=== PATIENT | male | born 1995 | race African-American/Black ===

== ENCOUNTER → 2024-05-08 | Outpatient (CLI) | payer OTHER | LOC: M PLAIMG 07:53 | PROVIDERS: ATTEND Otolaryngology | DX: J32.8 Other chronic sinusitis (principal); J34.8200 Internal nasal valve collapse, unspecified ==

== ENCOUNTER → 2024-08-17 | Outpatient (CLI) | payer OTHER | LOC: M RAD 07:32 | PROVIDERS: ATTEND Emergency Medicine | DX: M25.571 Pain in right ankle and joints of right foot (principal); Q66.89 Other specified congenital deformities of feet ==

== ENCOUNTER 2024-11-14 15:15 | Emergency (ER) | payer OTHER ==
[~2024-11-14] VITALS: Ht 182.9 cm; Wt 100.3 kg
[2024-11-14 15:18] VITALS: TEMP 98.4; O2SAT 100
[2024-11-14] MEDS ORDERED: ELET40TA (15:25)
[2024-11-14] MEDS: NS (Normal Saline) 0.9% 1,000 ML IV ONE (16:33)
[2024-11-14] MEDS: diphenhydrAMINE 50 MG/ML VIAL IV ONE (16:34)
[2024-11-14] MEDS: KETOROLAC 30 MG/ML 1 ML VIAL IV ONE (16:34)
[2024-11-14 16:47] LABS: BASO # 0.0 10^3/uL (0.0-0.2); BASO % 0.4 % (0.0-1.0); EOS # 0.1 10^3/uL (0.0-0.5); EOS % 1.0 % (0.0-3.0); LYMPH # 3.3 10^3/uL (1.5-5.0); LYMPH % 46.6 % (24.0-44.0); MONO # 0.8 10^3/uL (0.0-0.8); MONO % 11.7 % (2.0-8.0); NEUTROPHILS # 2.8 10^3/uL (1.5-8.5); NEUTROPHILS % 40.2 % (36.0-66.0); PLATELET COUNT, AUTOMATED 249 10^3/uL (150-450)
[2024-11-14 17:04] LABS: ALT/SGPT 39 U/L (7.0-40); AST/SGOT 31 U/L (<34); CALCIUM LEVEL 9.5 MG/DL (8.5-10.1); CARBON DIOXIDE LEVEL 26 MMOL/L (20-31); CHLORIDE LEVEL 105 MMOL/L (98-107); CREATININE FOR GFR 1.12 MG/DL (0.70-1.30); GLOMERULAR FILTRATION RATE > 90.0 (>60); POTASSIUM SERUM 4.3 MMOL/L (3.5-5.1); SODIUM LEVEL 145 MMOL/L (136-145)
[2024-11-14] MEDS: ACETAMINOPHEN 500 MG TAB PO ONE (17:33)
[2024-11-14] MEDS: MAG SULF 1GM/100ML (MAG RUN) 1 GM in IV 1 EA IV ONE (17:34)
[2024-11-14] MEDS: dexAMETHasone 4 MG/ML 1 ML VIAL IV ONE (17:34)
[2024-11-14 17:54] LABS: ERYTHROCYTE SEDIMENTATION RATE 3 mm/hr (0-15)
[2024-11-14 18:33] VITALS: BP 130/90
== END 2024-11-14 18:53 | disposition home or self-care (01) ==
LOC: M ED 15:15
DX: G43.919 Migraine, unspecified, intractable, without status migrainosus (principal); Z88.8 Allergy status to other drugs, medicaments and biological substances
CPT/HCPCS: 70450; 80053; 85025; 85652; 96365; 96375; 99284; J1100; J1200; J1885; J2765; J3475

== ENCOUNTER 2024-12-01 11:13 | Emergency (ER) | payer OTHER ==
[~2024-12-01] VITALS: Ht 182.9 cm; Wt 98.6 kg
[~2024-12-01 11:13] MED LIST: ELET40TA
[2024-12-01] MEDS ORDERED: SUMA100T2 PO (11:36)
[2024-12-01] MEDS ORDERED: REFR0.1D OU (11:36)
[2024-12-01] MEDS ORDERED: SILD50TA2 PO (11:36)
[2024-12-01] MEDS ORDERED: AMIT25TA19 PO (11:36)
[2024-12-01] MEDS ORDERED: DULO1CAP6 PO (11:36)
[2024-12-01] MEDS ORDERED: OLOP5DRO17 OU (11:36)
[2024-12-01] MEDS ORDERED: RAME8TAB2 PO (11:36)
[2024-12-01] MEDS ORDERED: RIZA10TA58 PO (11:36)
[2024-12-01] MEDS ORDERED: ERGO500029 PO (11:36)
[2024-12-01 11:40] LABS: BASO # 0.1 10^3/uL (0.0-0.2); BASO % 1.0 % (0.0-1.0); EOS # 0.1 10^3/uL (0.0-0.5); EOS % 1.8 % (0.0-3.0); LYMPH # 2.5 10^3/uL (1.5-5.0); LYMPH % 50.1 % (24.0-44.0); MONO # 0.6 10^3/uL (0.0-0.8); MONO % 11.5 % (2.0-8.0); NEUTROPHILS # 1.8 10^3/uL (1.5-8.5); NEUTROPHILS % 35.4 % (36.0-66.0); PLATELET COUNT, AUTOMATED 274 10^3/uL (150-450)
[2024-12-01 12:16] LABS: CALCIUM LEVEL 9.0 MG/DL (8.5-10.1); CARBON DIOXIDE LEVEL 25 MMOL/L (20-31); CHLORIDE LEVEL 107 MMOL/L (98-107); CK-MB VALUE MASS 1.3 NG/ML (<3.6); CREATININE FOR GFR 1.13 MG/DL (0.70-1.30); GLOMERULAR FILTRATION RATE > 90.0 (>60); POTASSIUM SERUM 4.8 MMOL/L (3.5-5.1); SODIUM LEVEL 141 MMOL/L (136-145)
[2024-12-01 12:17] LABS: CPK CREATINE PHOSPHOKINASE 121 U/L (46-171); MB/CK RELATIVE INDEX 1.07 (< OR =4)
[2024-12-01] MEDS: NS (Normal Saline) 0.9% 1,000 ML IV ONE ×2 (12:29→14:02)
[2024-12-01] MEDS: MAG SULF 1GM/100ML (MAG RUN) 1 GM in IV 1 EA IV ONE (12:32)
[2024-12-01 12:40] LABS: INR 1.11
[2024-12-01 13:07] LABS: ALT/SGPT 88.0 U/L (7.0-40); AST/SGOT 47.0 U/L (<34); CK-MB VALUE MASS 1.2 NG/ML (<3.6); MAGNESIUM LEVEL 2.2 MG/DL (1.8-2.4)
[2024-12-01 13:09] LABS: FREE T4 1.3 NG/DL (0.89-1.76)
[2024-12-01 13:11] LABS: CPK CREATINE PHOSPHOKINASE 110.0 U/L (46-171); MB/CK RELATIVE INDEX 1.09 (< OR =4)
[2024-12-01] MEDS: METOPROLOL 5 MG/5 ML VIAL IV PRN (13:44)
[2024-12-01] MEDS: ONDANSETRON 4MG 2ML VIAL IV ONE (14:01)
[2024-12-01] MEDS ORDERED: ISOVUE-370 76% 100 ML VIAL As Ordered ONE (14:03)
[2024-12-01] MEDS: cefTRIAXone SOD 2 GM in DEXTROSE 5% (D5W) ADV/MINI-BAG 50 ML IV ONE (16:17)
[2024-12-01] MEDS: DIGOXIN INJ 0.5 MG/2 ML AMP IV ONE (16:50)
[2024-12-01 17:06] LABS: C REACTIVE PROTEIN QUANTITATIV < 0.50 MG/DL (<1.0)
[2024-12-01 17:21] LABS: ERYTHROCYTE SEDIMENTATION RATE 5 mm/hr (0-15)
[2024-12-01 17:55] VITALS: BP 138/77
[2024-12-01 18:00] VITALS: TEMP 97.6; O2SAT 98
[2024-12-01 18:07] VITALS: BP 110/85
== END 2024-12-01 18:09 | disposition short-term general hospital (02) ==
LOC: EDBD 11:13 → M ED 11:13
DX: I42.9 Cardiomyopathy, unspecified (principal); I48.91 Unspecified atrial fibrillation; J18.8 Other pneumonia, unspecified organism; M54.50 Low back pain, unspecified; G43.909 Migraine, unspecified, not intractable, without status migrainosus; Z88.8 Allergy status to other drugs, medicaments and biological substances
CPT/HCPCS: 36415; 71045; 71275; 80048; 80076; 82550; 82553; 83735; 83880; 84439; 84443; 84484; 85025; 85610; 85652; 85730; 86140; 87040; 87486; 87581; 87633; 87798; 93005; 93041; 93306; 94760; 96361; 96365; 96368; 96375; 99291; J0616; J0696; J1160; J1163; J2405; J3475; Q9967

== ENCOUNTER → 2024-12-07 | Outpatient (CLI) | payer OTHER ==
[~2024-12-07] MED LIST changes: +AMIT25TA19 PO; +DULO1CAP6 PO; +ERGO500029 PO; +OLOP5DRO17 OU; +RAME8TAB2 PO; +REFR0.1D OU; +RIZA10TA58 PO; +SILD50TA2 PO; +SUMA100T2 PO
== END ==
LOC: M PLAIMG 06:31
PROVIDERS: ATTEND Physician Assistant
DX: M51.16 Intervertebral disc disorders with radiculopathy, lumbar region (principal)